=== PATIENT | male | born 1995 | race Hispanic/Latino ===

== ENCOUNTER 2024-03-15 17:42 | Emergency (ER) | payer OTHER ==
[2024-03-15] MEDS ORDERED: Morphine 4 MG/ML VIAL ONE (18:12)
== END 2024-03-15 21:28 | disposition home or self-care (01) ==
LOC: ERS 17:42
DX: S93.402A Sprain of unspecified ligament of left ankle, initial encounter (principal); E11.9 Type 2 diabetes mellitus without complications; X50.1XXA Overexertion from prolonged static or awkward postures, initial encounter; Y93.89 Activity, other specified; Z55.6 Problems related to health literacy
CPT/HCPCS: 96374; J2270